=== PATIENT | male | born 1940 | race Caucasian/White ===

== ENCOUNTER → 2021-10-26 | Outpatient (CLI) | payer MEDICARE ==
--- NOTE | 2021-10-26 10:14 | Diagnostic Imaging Report ---
INDICATION: Aortic diastolic murmur. Proximal abdominal aorta measures 2.2 cm AP x 2.7 cm transverse. Midabdominal aorta measures 1.7 cm AP x 2.5 cm transverse. The distal abdominal aorta measures 1.6 cm AP x 1.9 cm transverse. The right iliac measures 1.1 x 1.8 cm and the left iliac measures 1.6 x 1.8 cm. No periaortic fluid collection is seen. IMPRESSION: 1. No evidence of abdominal aortic aneurysm. 2. 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 Dictated by: Dictated on workstation # [id number]
== END ==
LOC: CARD 09:00
PROVIDERS: ATTEND Nurse Practitioner
DX: I35.8 Other nonrheumatic aortic valve disorders (principal); I77.9 Disorder of arteries and arterioles, unspecified
CPT/HCPCS: 76775; 93306